=== PATIENT | female | born 1965 | race Caucasian/White ===

== ENCOUNTER 2017-02-10 11:27 | Emergency (ER) | payer BC | END 2017-02-10 13:00 | disposition home or self-care (01) | LOC: MADERS 11:27 | DX: J01.90 Acute sinusitis, unspecified (principal); R09.82 Postnasal drip; F32.9 Major depressive disorder, single episode, unspecified; Z79.899 Other long term (current) drug therapy | CPT/HCPCS: 87081; 87430; 99283 ==

== ENCOUNTER 2017-11-13 15:58 | Emergency (ER) | payer BC ==
[~2017-11-13 15:58] MED LIST: Sodium Chloride 0.9% 1,000 ML BAG ONE
[2017-11-13] MEDS ORDERED: Lorazepam 1 MG TAB ONE (16:16)
[2017-11-13] MEDS ORDERED: Acetaminophen 500 MG TAB ONE (16:16)
[2017-11-13 16:29] LABS: Bilirubin Negative (Negative); Blood, Urine Negative (Negative); Clarity Clear (Clear); Glucose, Urine (Dipstick) Negative (Negative); Leukocyte Trace (Negative); Nitrite Negative (Negative); Protein, Urine (Dipstick) Negative (Neg-Trace); Urobilinogen 0.2 mg/dL (0.2-1.0); pH, Urine 5.5 (5.0-9.0)
[2017-11-13 16:33] LABS: Specific Gravity, Urine 1.007 (1.002-1.036)
[2017-11-13 16:34] LABS: #Basophils 0.2 thou/uL (0.0-0.2); #Eosinphils 0.2 thou/uL (0.0-0.7); #Lymphocytes 3.1 thou/uL (1.20-3.40); #Monocytes 0.6 thou/uL (0.11-0.59); #Neutrophils 4.9 thou/uL (1.40-6.50); %Basophils 1.9 % (0.0-1.0); %Eosinophils 2.7 % (0.0-10.0); %Lymphocytes 34.6 % (21.0-51.0); %Monocytes 6.7 % (0.0-10.0); %Neutrophils 54.1 % (42.0-75.0); Hemoglobin 13.6 g/dL (12.0-16.0); Mean Corpuscular HGB CONC 34.1 g/dL (32.0-36.0); Mean Corpuscular Hemoglobin 31.9 pg (27.0-31.0); Mean Corpuscular Volume 93.5 fL (78.0-98.0); Mean Platelet Volume 10.8 fL (7.4-10.4); Platelet Count 219 thou/uL (130-400); RBC Distribution Width 11.9 % (11.5-14.5); Red Blood Cell (RBC) Count 4.28 mill/uL (4.20-5.40)
[2017-11-13 16:37] LABS: Bacteria/HPF Rare-Few HPF (None Seen); Crystals/HPF RARE CA OXALATE HPF (Negative); RBC/HPF 0-3 HPF (0-3)
[2017-11-13 16:52] LABS: Anion Gap 17 mmol/L (10-20); BUN (Urea Nitrogen) 18 mg/dL (9.8-20.1); Calc. Creatinine Clearance 0 mL/min (70-130); Calcium 9.5 mg/dL (7.8-10.44); Carbon Dioxide 23 mmol/L (22-29); Chloride 104 mmol/L (98-107); Estimated GFR-MDRD 62; Glucose 124 mg/dL (70-105); Sodium 140 mmol/L (136-145)
[2017-11-13 16:57] LABS: CKMB 0.9 ng/mL (0-6.6); Troponin I Less than 0.010 ng/mL (< 0.028)
[2017-11-13] MEDS ORDERED: cefTRIAXone\\ROCEPHIN 1 GM VIAL ONE (17:24)
== END 2017-11-13 17:39 | disposition home or self-care (01) ==
LOC: MADERS 15:58
DX: N39.0 Urinary tract infection, site not specified (principal); R42 Dizziness and giddiness; G43.909 Migraine, unspecified, not intractable, without status migrainosus; I10 Essential (primary) hypertension; F32.9 Major depressive disorder, single episode, unspecified; Z87.891 Personal history of nicotine dependence; Z79.82 Long term (current) use of aspirin; Z79.899 Other long term (current) drug therapy; Z79.891 Long term (current) use of opiate analgesic
CPT/HCPCS: 80048; 81003; 81015; 82553; 84484; 85025; 93005; 96361; 96374; J0696; J7050

== ENCOUNTER 2023-01-11 16:12 | Emergency (ER) | payer SELFPAY ==
[2023-01-11] MEDS ORDERED: Sulfameth/Trimethoprim DS 800-160mg TAB ONE ×2 (17:38→17:52)
[2023-01-11] MEDS ORDERED: CEFAZOLIN 1 GM VIAL ONE (17:38)
[2023-01-11] MEDS ORDERED: predniSONE 20 MG TAB ONE (17:38)
[2023-01-11] MEDS ORDERED: Ketorolac Tromethamine 60 MG/2 ML VIAL ONE (17:38)
[2023-01-11] MEDS ORDERED: Sterile Water 10 ML ONE (17:38)
== END 2023-01-11 18:35 | disposition home or self-care (01) ==
LOC: MADERS 16:12
DX: L02.415 Cutaneous abscess of right lower limb (principal); L03.111 Cellulitis of right axilla; E78.00 Pure hypercholesterolemia, unspecified; I10 Essential (primary) hypertension; Z87.891 Personal history of nicotine dependence; Z79.899 Other long term (current) drug therapy
CPT/HCPCS: 87070; 87077; 87186; 87205; 96372; 99283; J0690; J1885; J7512